=== PATIENT | male | born 1995 | race Caucasian/White ===

== ENCOUNTER 2022-02-09 14:47 | Emergency (ER) | payer OTHER ==
[~2022-02-09] VITALS: Ht 170.2 cm; Wt 72.0 kg
[2022-02-09 17:12] VITALS: BP 112/81
== END 2022-02-09 17:30 | disposition home or self-care (01) ==
LOC: EMS 14:54
DX: S09.90XA Unspecified injury of head, initial encounter (principal); V99.XXXA Unspecified transport accident, initial encounter; Y93.89 Activity, other specified; Y92.89 Other specified places as the place of occurrence of the external cause; Y99.8 Other external cause status
CPT/HCPCS: 70450; 99284